=== PATIENT | female | born 1990 | race Two or more races ===

== ENCOUNTER 2018-09-06 23:25 | Emergency (ER) | payer SELFPAY ==
[~2018-09-06] VITALS: Ht 167.6 cm; Wt 57.2 kg
--- NOTE | 2018-09-07 | NUR ---
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
--- NOTE | 2018-09-07 | NUR ---
BIBSELF COMPLAINING OF BILATERAL FLANK PAIN X4 DAYS. ALSO COMPLAINING OF DYSURIA, HEMATURIA, NAUSEA. PT [id number]. RESPIRATIONS EVEN AND UNLABORED. VITAL SIGNS STABLE. NO ACUTE DISTRESS NOTED AT THIS TIME. AMBULATORY WITH STEADY GAIT
[2018-09-07] MEDS ORDERED: ONDANSETRON 4 MG TAB.RAPDIS ONE (00:23)
[2018-09-07] MEDS ORDERED: IBUPROFEN 600 MG TABLET PO ONE ×2 (00:23→00:30)
[2018-09-07] MEDS ORDERED: ONDANSETRON 4 MG TAB.RAPDIS SL ONE (00:30)
[2018-09-07 00:40] LABS: APPEARANCE,URINE CLEAR (CLEAR); BILIRUBIN,URINE NEGATIVE (NEGATIVE); BLOOD, URINE TRACE-INTA Ery/uL (NEGATIVE); COLOR,URINE YELLOW (YELLOW); KETONES,URINE NEGATIVE (NEGATIVE); LEUKOCYTE ESTERASE ,URINE 1+ (NEGATIVE); NITRITE, URINE NEGATIVE (NEGATIVE); PROTEIN,URINE NEGATIVE (NEGATIVE); UGLUCOSE NEGATIVE (NEGATIVE); UROBILINOGEN,URINE 0.2 EU/dL (0.2)
[2018-09-07 00:45] LABS: BACTERIA,URINE Few /HPF (None Seen); SQUAMOUS EPITHELIAL CELL,UR Few /HPF (None Seen); WBC,URINE 51-80 /HPF (0-3)
--- NOTE | 2018-09-07 01:45 | NUR ---
Patient discharged to home in stable condition. Written and verbal after care instructions given. Patient verbalizes understanding of instruction. ambulatory with a steady gait noted, resp even and unlabored.
[2018-09-07 01:47] VITALS: BP 123/63
== END 2018-09-07 01:48 | disposition home or self-care (01) ==
LOC: ER 23:29
DX: N12 Tubulo-interstitial nephritis, not specified as acute or chronic (principal); R11.2 Nausea with vomiting, unspecified
CPT/HCPCS: 81001; 84703; 87077; 87086; 87186; 99283; A4606; Q0162; 81000-TC

== ENCOUNTER 2024-06-19 01:09 | Emergency (ER) | payer OTHER ==
[~2024-06-19] VITALS: Ht 167.6 cm; Wt 59.9 kg
[2024-06-19 02:16] LABS: BASOPHILS % (AUTO) 0.9 % (0.0-2.0); EOSINOPHILS # (AUTO) 0.1 K/uL (0.0-0.7); EOSINOPHILS % (AUTO) 1.7 % (0.0-6.0); HEMATOCRIT 39 % (33-45); HEMOGLOBIN 13.7 g/dL (11.5-14.8); LYMPHOCYTES # (AUTO) 1.6 K/uL (0.8-4.8); LYMPHOCYTES % (AUTO) 32.8 % (20.0-44.0); MEAN CORPUSCULAR HEMOGLOBIN 34 PG (26.0-33.0); MEAN CORPUSCULAR HGB CONC 35 g/dl (31.0-36.0); MEAN CORPUSCULAR VOLUME 96 fL (82-100); MONOCYTES # (AUTO) 0.4 K/uL (0.1-1.30); MONOCYTES % (AUTO) 8.6 % (2.0-12.0); NEUTROPHILS # (AUTO) 2.8 K/uL (1.8-8.9); PLATELET COUNT (AUTO) 315 K/uL (150-450); RED BLOOD CELL COUNT(AUTO) 4.06 MIL/uL (4.0-5.2); RED CELL DISTRIBUTION WIDTH 12.9 % (11.5-15.0)
[2024-06-19 02:32] LABS: ALBUMIN 3.6 g/dL (3.4-5.0); BILIRUBIN,DIRECT 0.1 mg/dL (0.0-0.2); BILIRUBIN,TOTAL 0.2 mg/dL (0.2-1.0); CALCIUM, SERUM 8.3 mg/dL (8.5-10.1); CREATININE 0.5 mg/dL (0.6-1.3); POTASSIUM 3.8 mmol/L (3.5-5.1); TOTAL PROTEIN, SERUM 7.5 g/dL (6.4-8.2)
[2024-06-19 02:46] LABS: ALCOHOL, BLOOD 267 mg/dL (0-10); PREGNANCY TEST SERUM QUAN 1 mIU/mL (0-6)
[2024-06-19 03:19] VITALS: BP 144/81; TEMP 98.1; O2SAT 98
== END 2024-06-19 03:19 | disposition home or self-care (01) ==
LOC: ER 01:12
DX: R41.82 Altered mental status, unspecified (principal); F10.10 Alcohol abuse, uncomplicated; R10.2 Pelvic and perineal pain; Y90.8 Blood alcohol level of 240 mg/100 ml or more
CPT/HCPCS: 36415; 80048-TC; 80076-TC; 82962-TC; 84702-TC; 85025-TC; G0480

== ENCOUNTER 2024-10-21 16:56 | Emergency (ER) | payer SELFPAY ==
[~2024-10-21] VITALS: Ht 167.6 cm; Wt 54.4 kg
[2024-10-21] MEDS ORDERED: LORAZEPAM 0.5 MG TABLET ONE (17:34)
[2024-10-21] MEDS: LORAZEPAM 1 MG TABLET PO ONE (17:37)
[2024-10-21] MEDS ORDERED: LORA-258 PO (19:24)
[2024-10-21 19:54] VITALS: BP 120/89; TEMP 98; O2SAT 99
== END 2024-10-21 19:55 | disposition home or self-care (01) ==
LOC: ER 16:56
DX: F41.0 Panic disorder [episodic paroxysmal anxiety] (principal); F41.9 Anxiety disorder, unspecified

== ENCOUNTER 2024-11-03 17:16 | Emergency (ER) | payer MEDICAID ==
[~2024-11-03] VITALS: Ht 167.6 cm; Wt 54.4 kg
[~2024-11-03 17:16] MED LIST: LORA-258 PO
[2024-11-03] MEDS: IV NS 0.9% 1,000 ML BAG IV ONE (17:49)
[2024-11-03 17:52] LABS: BASOPHILS # (AUTO) 0.1 K/uL (0.0-0.2); EOSINOPHILS # (AUTO) 0.1 K/uL (0.0-0.7); HEMATOCRIT 42 % (33-45); HEMOGLOBIN 14.2 g/dL (11.5-14.8); LYMPHOCYTES # (AUTO) 2.8 K/uL (0.8-4.8); LYMPHOCYTES % (AUTO) 49.1 % (20.0-44.0); MEAN CORPUSCULAR HEMOGLOBIN 32 PG (26.0-33.0); MEAN CORPUSCULAR HGB CONC 34 g/dl (31.0-36.0); MEAN CORPUSCULAR VOLUME 94 fL (82-100); MONOCYTES # (AUTO) 0.5 K/uL (0.1-1.30); MONOCYTES % (AUTO) 9.2 % (2.0-12.0); NEUTROPHILS # (AUTO) 2.2 K/uL (1.8-8.9); NEUTROPHILS % (AUTO) 39.7 % (43.0-81.0); PLATELET COUNT (AUTO) 287 K/uL (150-450); RED BLOOD CELL COUNT(AUTO) 4.45 MIL/uL (4.0-5.2); RED CELL DISTRIBUTION WIDTH 13.7 % (11.5-15.0); WHITE BLOOD COUNT (AUTO) 5.7 K/uL (4.3-11.0)
[2024-11-03] MEDS: Thiamine 100 MG in IV D5W 50 ML IV SCH (18:00)
[2024-11-03 18:04] LABS: CREATININE 0.6 mg/dL (0.6-1.3); POTASSIUM 4.1 mmol/L (3.5-5.1)
[2024-11-03 18:12] LABS: ALBUMIN 3.8 g/dL (3.4-5.0); BILIRUBIN,DIRECT 0.1 mg/dL (0.0-0.2); BILIRUBIN,TOTAL 0.3 mg/dL (0.2-1.0); TOTAL PROTEIN, SERUM 8.2 g/dL (6.4-8.2)
[2024-11-03 18:36] LABS: PREGNANCY TEST URINE QUAL NEGATIVE (NEGATIVE)
[2024-11-03 19:29] LABS: AMPHETAMINE, URINE NEGATIVE (NEGATIVE); BARBITURATE, URINE NEGATIVE (NEGATIVE); BENZODIAZEPINE, URINE NEGATIVE (NEGATIVE); CANNABINOID, URINE NEGATIVE (NEGATIVE); COCCAINE, URINE NEGATIVE (NEGATIVE); OPIATE, URINE NEGATIVE (NEGATIVE); PHENCYCLIDINE SCREEN,URINE NEGATIVE (NEGATIVE)
[2024-11-03 20:53] LABS: THYROID STIMULATING HORMONE 0.67 uIU/mL (0.358-3.74)
[2024-11-03 21:03] VITALS: BP 120/78; TEMP 98.1; O2SAT 95
== END 2024-11-03 21:04 | disposition home or self-care (01) ==
LOC: ER 17:16
DX: F10.129 Alcohol abuse with intoxication, unspecified (principal); F41.0 Panic disorder [episodic paroxysmal anxiety]; R07.89 Other chest pain; F41.9 Anxiety disorder, unspecified; Z79.899 Other long term (current) drug therapy; Y90.8 Blood alcohol level of 240 mg/100 ml or more
CPT/HCPCS: 99285; 96365; 93005; 71045; 85025; 80048; 80076; 84703; 36415; 84443; 80320; 80307; J7060; J7030; J3411; A4223 ×2; G0480

== ENCOUNTER 2024-11-12 23:20 | Emergency (ER) | payer MEDICAID ==
[~2024-11-12] VITALS: Ht 170.2 cm; Wt 56.7 kg
[2024-11-13 00:27] LABS: BASOPHILS # (AUTO) 0.1 K/uL (0.0-0.2); BASOPHILS % (AUTO) 0.9 % (0.0-2.0); EOSINOPHILS # (AUTO) 0.1 K/uL (0.0-0.7); EOSINOPHILS % (AUTO) 1.6 % (0.0-6.0); HEMATOCRIT 40 % (33-45); HEMOGLOBIN 13.5 g/dL (11.5-14.8); LYMPHOCYTES # (AUTO) 2.9 K/uL (0.8-4.8); LYMPHOCYTES % (AUTO) 50.1 % (20.0-44.0); MEAN CORPUSCULAR HEMOGLOBIN 32 PG (26.0-33.0); MEAN CORPUSCULAR HGB CONC 34 g/dl (31.0-36.0); MEAN CORPUSCULAR VOLUME 94 fL (82-100); MONOCYTES # (AUTO) 0.4 K/uL (0.1-1.30); MONOCYTES % (AUTO) 7.2 % (2.0-12.0); NEUTROPHILS # (AUTO) 2.3 K/uL (1.8-8.9); NEUTROPHILS % (AUTO) 40.2 % (43.0-81.0); PLATELET COUNT (AUTO) 335 K/uL (150-450); RED BLOOD CELL COUNT(AUTO) 4.25 MIL/uL (4.0-5.2); RED CELL DISTRIBUTION WIDTH 14.6 % (11.5-15.0); WHITE BLOOD COUNT (AUTO) 5.7 K/uL (4.3-11.0)
[2024-11-13 00:37] LABS: APPEARANCE,URINE CLEAR (CLEAR); BILIRUBIN,URINE NEGATIVE (NEGATIVE); BLOOD, URINE TRACE-INTA Ery/uL (NEGATIVE); KETONES,URINE NEGATIVE (NEGATIVE); LEUKOCYTE ESTERASE ,URINE TRACE (NEGATIVE); NITRITE, URINE NEGATIVE (NEGATIVE); PH,URINE 6.5 (5.0-8.0); PROTEIN,URINE NEGATIVE (NEGATIVE); UGLUCOSE NEGATIVE (NEGATIVE); UROBILINOGEN,URINE 0.2 EU/dL (0.2)
[2024-11-13 00:39] LABS: CALCIUM, SERUM 8.4 mg/dL (8.5-10.1); CREATININE 0.6 mg/dL (0.6-1.3); POTASSIUM 3.5 mmol/L (3.5-5.1)
[2024-11-13 00:44] LABS: PREGNANCY TEST URINE QUAL NEGATIVE (NEGATIVE)
[2024-11-13 00:47] LABS: COLOR,URINE STRAW (YELLOW)
[2024-11-13 00:53] LABS: ALBUMIN 3.7 g/dL (3.4-5.0); BILIRUBIN,TOTAL 0.2 mg/dL (0.2-1.0); TOTAL PROTEIN, SERUM 7.9 g/dL (6.4-8.2)
[2024-11-13 00:53] LABS: AMPHETAMINE, URINE NEGATIVE (NEGATIVE); BARBITURATE, URINE NEGATIVE (NEGATIVE); BENZODIAZEPINE, URINE NEGATIVE (NEGATIVE); CANNABINOID, URINE NEGATIVE (NEGATIVE); COCCAINE, URINE NEGATIVE (NEGATIVE); OPIATE, URINE NEGATIVE (NEGATIVE); PHENCYCLIDINE SCREEN,URINE NEGATIVE (NEGATIVE)
[2024-11-13 01:19] LABS: ADD URINE CULTURE YES; SQUAMOUS EPITHELIAL CELL,UR Few /HPF (None Seen)
[2024-11-13 01:20] LABS: BACTERIA,URINE Moderate /HPF (None Seen)
[2024-11-13] MEDS ORDERED: IOHEXOL-350 100 ML VIAL IV ONE (02:01)
[2024-11-13] MEDS ORDERED: CT SWABBABLE VALVE TRANS SET 1 EA INFUS.SET MC ONE (02:01)
[2024-11-13] MEDS ORDERED: IV NS 0.9% 250 ML IV ONE (02:01)
[2024-11-13] MEDS: IV NS 0.9% 1,000 ML IV ONE ×2 (02:05)
[2024-11-13 05:15] VITALS: BP 92/63; TEMP 98; O2SAT 97
[2024-11-13] MEDS ORDERED: NITR100C6 PO (07:04)
== END 2024-11-13 05:19 | disposition home or self-care (01) ==
LOC: ER 23:21
DX: F10.10 Alcohol abuse, uncomplicated (principal); N39.0 Urinary tract infection, site not specified; F41.0 Panic disorder [episodic paroxysmal anxiety]; R55 Syncope and collapse; Z79.899 Other long term (current) drug therapy
CPT/HCPCS: 99285; 93005; 71045; 70450; 36415; 80307; 96360; 71275; 85025; 85378; 84703; 81001; 80053; 84484; 83880; 80320; J7030; J7050; Q9967; G0480

== ENCOUNTER 2024-12-17 20:26 | Emergency (ER) | payer MEDICAID ==
[~2024-12-17 20:26] MED LIST changes: +NITR100C6 PO
== END 2024-12-17 22:19 | disposition left against medical advice (07) ==
LOC: ER 20:29
DX: F41.0 Panic disorder [episodic paroxysmal anxiety] (principal); Z53.21 Procedure and treatment not carried out due to patient leaving prior to being seen by health care provider

== ENCOUNTER 2025-01-27 22:04 | Emergency (ER) | payer MEDICAID, OTHER ==
[~2025-01-27] VITALS: Ht 172.7 cm; Wt 54.4 kg
[2025-01-27 22:10] VITALS: TEMP 98.1
[2025-01-27] MEDS: IV NS 0.9% 1,000 ML IV ONE (23:00)
[2025-01-27 23:02] LABS: PLATELET COUNT (AUTO) 264 K/uL (150-450); RED BLOOD CELL COUNT(AUTO) 4.09 MIL/uL (4.0-5.2); RED CELL DISTRIBUTION WIDTH 13.2 % (11.5-15.0); WHITE BLOOD COUNT (AUTO) 4.7 K/uL (4.3-11.0)
[2025-01-27 23:13] LABS: CALCIUM, SERUM 8.1 mg/dL (8.5-10.1); CREATININE 0.4 mg/dL (0.6-1.3); SODIUM SERUM 139.0 mmol/L (136-145); UREA NITROGEN, BLOOD 7.0 mg/dL (7-18)
[2025-01-27 23:19] LABS: ALCOHOL, BLOOD 288.0 mg/dL (0-10); ASPARTATE AMINOTRANSFERASE 19.0 U/L (15-37); TOTAL PROTEIN, SERUM 7.0 g/dL (6.4-8.2)
[2025-01-28] MEDS ORDERED: POTASSIUM CHLORIDE 20 MEQ TAB.PRT.SR PO ONE ×2 (00:34→00:48)
[2025-01-28] MEDS ORDERED: POTASSIUM CL. PREMIX PERIPHER. 100 ML ONE (00:34)
[2025-01-28] MEDS: POTASSIUM CHLORIDE 20 MEQ TAB.PRT.SR PO ONE (00:45)
[2025-01-28] MEDS: POTASSIUM CL. PREMIX PERIPHER. 50 ML IV SCH (00:46)
[2025-01-28] MEDS: IV NS 0.9% 1,000 ML IV ONE (00:46)
[2025-01-28 01:09] LABS: APPEARANCE,URINE CLEAR (CLEAR); BLOOD, URINE NEGATIVE Ery/uL (NEGATIVE); LEUKOCYTE ESTERASE ,URINE NEGATIVE (NEGATIVE); NITRITE, URINE NEGATIVE (NEGATIVE); UGLUCOSE NEGATIVE (NEGATIVE)
[2025-01-28 01:14] LABS: PREGNANCY TEST URINE QUAL NEGATIVE (NEGATIVE)
[2025-01-28 01:19] LABS: AMPHETAMINE, URINE NEGATIVE (NEGATIVE); BARBITURATE, URINE NEGATIVE (NEGATIVE); BENZODIAZEPINE, URINE NEGATIVE (NEGATIVE); CANNABINOID, URINE NEGATIVE (NEGATIVE); COCCAINE, URINE NEGATIVE (NEGATIVE); OPIATE, URINE NEGATIVE (NEGATIVE)
[2025-01-28 02:45] VITALS: BP 109/66; O2SAT 100
== END 2025-01-28 02:56 | disposition home or self-care (01) ==
LOC: ER 22:06
DX: F10.10 Alcohol abuse, uncomplicated (principal); F41.9 Anxiety disorder, unspecified; R00.2 Palpitations; Z79.899 Other long term (current) drug therapy
CPT/HCPCS: 99285; 96361; 93005; 85025; 83735; 84703; 81003; 36415; 80053; 80320; 80307; 96365; 96366; J7030; J3480; A4223; G0480